=== PATIENT | female | born 1950 | race Caucasian/White ===

== ENCOUNTER → 2016-11-28 | Outpatient (CLI) | payer MEDICARE ==
[2016-11-28 15:36] LABS: Blood Urea Nitrogen 17 mg/dL (7-17); Non-African American GFR(MDRD) >60 (>60 ml/min/1.73 sqM)
== END | disposition home or self-care (01) ==
LOC: LABWHC1 14:56
PROVIDERS: ATTEND Physician Assistant
DX: M51.36 Other intervertebral disc degeneration, lumbar region (principal); M43.17 Spondylolisthesis, lumbosacral region; M54.16 Radiculopathy, lumbar region; M54.5 Low back pain; N28.9 Disorder of kidney and ureter, unspecified
CPT/HCPCS: 36415; 82565; 84520

== ENCOUNTER → 2017-09-29 | Outpatient (CLI) | payer MEDICARE ==
--- NOTE | 2017-09-29 16:21 | US ---
EXAMINATION TYPE: US thyroid st tissue head/neck DATE OF EXAM: 09/29/2017 COMPARISON: NONE CLINICAL HISTORY: 67-year-old female R22.1 THYROID MASS. Enlarged gland, on thyroid meds for 20 years . TECHNIQUE: Multiple sonographic images of the thyroid gland are obtained. FINDINGS: GLAND SIZE: Right Lobe: 6.5 x 2.9 x 3.1 cm Left Lobe: 4.7 x 2.1 x 2.5 cm Isthmus Thickness: 0.4 cm The thyroid gland is markedly heterogeneous, bulky, enlarged. 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 No other discrete nodule is seen. IMPRESSION: 1. Bulky and markedly heterogeneous thyroid gland could reflect goiter or diffuse thyroiditis. If the re is a new palpable mass and enlargement is noted, an infiltrative lesion such as lymphoma would be difficult to exclude. Further clinical correlation would be recommended as to the need for any tissue sampling. 2. If no sampling is performed, a three-month follow-up ultrasound can reassess.
== END | disposition home or self-care (01) ==
LOC: RADUSWWP 15:21
PROVIDERS: ATTEND Family Medicine
DX: E07.89 Other specified disorders of thyroid (principal); R22.1 Localized swelling, mass and lump, neck
CPT/HCPCS: 76536

== ENCOUNTER → 2017-10-01 | Outpatient (CLI) | payer MEDICARE ==
[2017-10-01 11:14] LABS: T4, Free (Free Thyroxine) 1.53 ng/dL (0.78-2.19)
== END | disposition home or self-care (01) ==
LOC: LABWHC1 10:23
PROVIDERS: ATTEND Otolaryngology
DX: E03.9 Hypothyroidism, unspecified (principal)
CPT/HCPCS: 36415; 84439; 84443; 86376

== ENCOUNTER 2021-05-13 11:30 | Emergency (ER) | payer MEDICARE ==
[2021-05-13 11:42] VITALS: RESP 20; TEMP 98.7
[2021-05-13] MEDS ORDERED: SODIUM CHLORIDE 0.9% 500 ML 500 ML IV STA (12:54)
[2021-05-13] MEDS ORDERED: PANTOPRAZOLE 40 MG/10 ML VIAL IVP STA (12:54)
[2021-05-13] MEDS ORDERED: MORPHINE SULFATE 2 MG/ML SYRINGE IVP STA (12:54)
[2021-05-13] MEDS ORDERED: ONDANSETRON 4 MG/2 ML VIAL IVP STA (12:54)
--- NOTE | 2021-05-13 13:02 | ED ---
General Adult HPI - General Chief complaint: GI Bleed Stated complaint: Diarrhea/blood in stool/abd pain Time Seen by Provider: 05/13/21 12:45 Source: patient, RN notes reviewed Mode of arrival: ambulatory Limitations: no limitations - History of Present Illness Initial comments: Patient is a 70-year-old female presenting to the emergency Department with complaints of left lower quadrant abdominal pain as well as bloody diarrhea for the past 2 days. Patient states on Thursday night, early in the morning she woke up with left lower quadrant pain, rated to the bathroom and had a large amount of bloody diarrhea. States is bright red in nature. The pain and diarrhea has progressed over the past 2 days, she's had multiple bowel movements over the pa st 2 days each with bright red blood in it. She denies being on blood thinners. Back in 1995 she had a bowel resection secondary to ischemia. The patient has not had a colonoscopy since then. She admits appendectomy, , hysterectomy and tubal ligation. She denies any fevers or chills, no chest pain or shortness of breath, no nausea or vomiting. He currently rates her left lower quadrant pain about a 7/10. Patient has no further complaints at this time. Her vitals are stable upon arrival. - Related Data Home Medications Medication Instructions Recorded Confirmed Citalopram Hydrobromide [CeleXA] 20 mg PO HS 07/18/14 07/31/14 Ibuprofen [Motrin] 200 - 400 mg PO Q6HR PRN 07/18/14 07/31/14 Levothyroxine Sodium [Synthroid] 100 mcg PO QAM 07/18/14 07/18/14 estradioL [Estrace] 1 mg PO QAM 07/18/14 07/18/14 valACYclovir HCL [Valtrex] 1,000 mg PO DAILY 07/18/14 07/31/14 Previous Rx's Medication Instructions Recorded Hydrocodone/Acetaminophen [[place] 1 - 2 each PO Q8HR PRN #90 tab 07/31/14 5-325] Ciprofloxacin HCl [Cipro] 500 mg PO BID 7 Days #14 tab 05/13/21 metroNIDAZOLE [Flagyl] 500 mg PO TID 7 Days #21 tab 05/13/21 Allergies Allergy/AdvReac Type Severity Reaction Status Date / Time Sulfa (Sulfonamide Allergy Rash/Hives Verified 05/13/21 11:42 Antibiotics) Review of Systems ROS Statement: Those systems with pertinent positive or pertinent negative responses have been documented in the HPI. ROS Other: All systems not noted in ROS Statement are negative. Past Medical History Past Medical History: Osteoarthritis (OA), Thyroid Disorder Additional Past Medical History / Comment(s): CURRENTLY HAVING HERPES OUTBREAK (ORAL), BEING TREATED History of Any Multi-Drug Resistant Organisms: None Reported Past Surgical History: Appendectomy, Breast Surgery, Section, Hysterectomy, Orthopedic Surgery, Tubal Ligation Additional Past Surgical History / Comment(s): EPIDURAL STEROID INJECTIONS BY DR. VELAZQUEZ (4 SINCE AUG 30). REMOVAL OVARIAN CYST. Past Anesthesia/Blood Transfusion Reactions: No Reported Reaction Past Psychological History: Anxiety, Depression Smoking Status: Current every day smoker Past Alcohol Use History: Occasional Past Drug Use History: None Reported - Past Family History Father Family Medical History: Cancer Mother Family Medical History: Cancer General Exam - General Exam Comments Initial Comments: GENERAL: Patient is well-developed and well-nourished. Patient is nontoxic and in no acute distress. HEAD: Atraumatic, normocephalic. EYES: Pupils equal round and reactive to light, extraocular movements intact, sclera anicteric, conjunctiva are normal. Eyelids were unremarkable. ENT: Nares patent, oropharynx clear without exudates. Moist mucous membranes. NECK: Normal range of motion, supple without lymphadenopathy or JVD. LUNGS: Unlabored respirations. Breath sounds clear to auscultation bilaterally and equal. No wheezes rales or rhonchi. HEART: Regular rate and rhythm without murmurs, rubs or gallops. ABDOMEN: Soft, tender to palpation left lower quadrant, suprapubic area, normoactive bowel sounds. No guarding, no rebound. No masses appreciated. : Deferred Rectal exam: Unable to perform rectal exam secondary to patient being in the hallway. MUSCULOSKELETAL: Normal extremities with adequate strength and normal range of motion, no pitting or edema. No clubbing or cyanosis. NEUROLOGICAL: Patient is alert and oriented x 3. Normal speech, normal gait. PSYCH: Normal mood, normal affect. SKIN: Warm, Dry, normal turgor, no rashes or lesions noted. Limitations: no limitations Course Vital Signs 10/18/21 10/18/21 10/18/21 11:39 13:46 15:44 Temperature 98.7 F Pulse Rate 85 83 69 Respiratory 20 20 20 Rate Blood Pressure 109/58 115/58 100/44 O2 Sat by Pulse 99 98 97 Oximetry Medical Decision Making - Medical Decision Making Patient is a 70-year-old female here with complaints of diarrhea as well as left lower quadrant pain over the past 3 days. She also notices bright red blood mixed in her diarrhea. Patient's vital signs are stable. No fevers. Labs are unremarkable including a normal hemoglobin. Urine shows evidence of infection. CT of the abdomen reads correlate for pseudomembranous colitis. Colitis of other etiology not excluded. She was unable to leave a stool sample to test for C. diff today. She did receive some fluids and pain medicine, she's been resting comfortably. She is requesting to go home. I will give her an outpatient lab slip for a stool sample. I will start her on Flagyl and Cipro for colitis. If C. diff returns positive, I will switch her to her oral vancomycin. She is agreeable to this plan of care. Strict return parameters were discussed with her and she verbalized understanding. Case discussed with Dr. loyd. - Lab Data Result diagrams: 05/13/21 12:58 05/13/21 12:58 Lab Results 05/13/21 05/13/21 05/13/21 Range/Units 12:58 12:58 12:58 WBC 9.3 (3.8-10.6) k/uL RBC 4.51 (3.80-5.40) m/uL Hgb 14.4 (11.4-16.0) gm/dL Hct 43.3 (34.0-46.0) % MCV 96.1 (80.0-100.0) fL MCH 31.9 (25.0-35.0) pg MCHC 33.2 (31.0-37.0) g/dL RDW 12.9 (11.5-15.5) % Plt Count 319 (150-450) k/uL MPV 6.9 Neutrophils % 64 % Lymphocytes % 23 % Monocytes % 8 % Eosinophils % 2 % Basophils % 0 % Neutrophils # 6.0 (1.3-7.7) k/uL Lymphocytes # 2.1 (1.0-4.8) k/uL Monocytes # 0.7 (0-1.0) k/uL Eosinophils # 0.2 (0-0.7) k/uL Basophils # 0.0 (0-0.2) k/uL PT 9.6 (9.0-12.0) sec INR 0.9 (<1.2) APTT 22.8 (22.0-30.0) sec Sodium (137-145) mmol/L Potassium (3.5-5.1) mmol/L Chloride (98-107) mmol/L Carbon Dioxide (22-30) mmol/L Anion Gap mmol/L BUN (7-17) mg/dL Creatinine (0.52-1.04) mg/dL Est GFR (CKD-EPI)AfAm (>60 ml/min/1.73 sqM) Est GFR (CKD-EPI)NonAf (>60 ml/min/1.73 sqM) Glucose (74-99) mg/dL Plasma Lactic Acid Rudolph (0.7-2.0) mmol/L Calcium (8.4-10.2) mg/dL Total Bilirubin (0.2-1.3) mg/dL AST (14-36) U/L ALT (4-34) U/L Alkaline Phosphatase (38-126) U/L Total Protein (6.3-8.2) g/dL Albumin (3.5-5.0) g/dL Amylase (30-110) U/L Lipase (23-300) U/L Urine Color Yellow Urine Appearance Clear (Clear) Urine pH 6.0 (5.0-8.0) Ur Specific [place] 1.009 (1.001-1.035) Urine Protein Negative (Negative) Urine Glucose (UA) Negative (Negative) Urine Ketones 1+ H (Negative) Urine Blood Negative (Negative) Urine Nitrite Negative (Negative) Urine Bilirubin Negative (Negative) Urine Urobilinogen <2.0 (<2.0) mg/dL Ur Leukocyte Esterase Negative (Negative) Blood Type Blood Type Recheck Bld Type Recheck Status Antibody Screen Spec Expiration Date 05/13/21 05/13/21 05/13/21 Range/Units 12:58 12:58 13:05 WBC (3.8-10.6) k/uL RBC (3.80-5.40) m/uL Hgb (11.4-16.0) gm/dL Hct (34.0-46.0) % MCV (80.0-100.0) fL MCH (25.0-35.0) pg MCHC (31.0-37.0) g/dL RDW (11.5-15.5) % Plt Count (150-450) k/uL MPV Neutrophils % % Lymphocytes % % Monocytes % % Eosinophils % % Basophils % % Neutrophils # (1.3-7.7) k/uL Lymphocytes # (1.0-4.8) k/uL Monocytes # (0-1.0) k/uL Eosinophils # (0-0.7) k/uL Basophils # (0-0.2) k/uL PT (9.0-12.0) sec INR (<1.2) APTT (22.0-30.0) sec Sodium 134 L (137-145) mmol/L Potassium 3.9 (3.5-5.1) mmol/L Chloride 102 (98-107) mmol/L Carbon Dioxide 23 (22-30) mmol/L Anion Gap 9 mmol/L BUN 13 (7-17) mg/dL Creatinine 0.64 (0.52-1.04) mg/dL Est GFR (CKD-EPI)AfAm >90 (>60 ml/min/1.73 sqM) Est GFR (CKD-EPI)NonAf >90 (>60 ml/min/1.73 sqM) Glucose 97 (74-99) mg/dL Plasma Lactic Acid Rud[place] 0.8 (0.7-2.0) mmol/L Calcium 9.1 (8.4-10.2) mg/dL Total Bilirubin 0.4 (0.2-1.3) mg/dL AST 21 (14-36) U/L ALT 12 (4-34) U/L Alkaline Phosphatase 97 (38-126) U/L Total Protein 7.6 (6.3-8.2) g/dL Albumin 3.9 (3.5-5.0) g/dL Amylase 79 (30-110) U/L Lipase 162 (23-300) U/L Urine Color Urine Appearance (Clear) Urine pH (5.0-8.0) Ur Specific [place] (1.001-1.035) Urine Protein (Negative) Urine Glucose (UA) (Negative) Urine Ketones (Negative) Urine Blood (Negative) Urine Nitrite (Negative) Urine Bilirubin (Negative) Urine Urobilinogen (<2.0) mg/dL Ur Leukocyte Esterase (Negative) Blood Type A Positive Blood Type Recheck A Pos Bld Type Recheck Status No Antibody Screen NEGATIVE Spec Expiration Date 05/16/20212304 Disposition Clinical Impression: Colitis, Abdominal pain Disposition: HOME SELF-CARE Condition: Stable Instructions (If sedation given, give patient instructions): Colitis (ED) Additional Instructions: Please return to the Emergency Department if symptoms worsen or any other concerns. Please complete stool sample as discussed, turn into outpatient lab. Take antibiotics as directed until C. diff test results. Follow-up with your primary care as well as GI. Prescriptions: Ciprofloxacin HCl [Cipro] 500 mg PO BID 7 Days #14 tab metroNIDAZOLE [Flagyl] 500 mg PO TID 7 Days #21 tab Is patient prescribed a controlled substance at d/c from ED?: No Referrals: Reinier Spencer DO [Primary Care Provider] - 1-2 days Elida Schmidt MD [STAFF PHYSICIAN] - 1-2 days
[2021-05-13 13:26] LABS: Basophils % (A) 0 %; Eosinophils # (A) 0.2 k/uL (0-0.7); Eosinophils % (A) 2 %; HCT 43.3 % (34.0-46.0); HGB 14.4 gm/dL (11.4-16.0); Lymphocytes # (A) 2.1 k/uL (1.0-4.8); Lymphocytes % (A) 23 %; MCH 31.9 pg (25.0-35.0); MCHC 33.2 g/dL (31.0-37.0); MCV 96.1 fL (80.0-100.0); Mean Platelet Volume 6.9; Monocytes # (A) 0.7 k/uL (0-1.0); Monocytes % (A) 8 %; Neutrophils % (A) 64 %; Platelet Count 319 k/uL (150-450); RBC 4.51 m/uL (3.80-5.40); RDW 12.9 % (11.5-15.5); WBC 9.3 k/uL (3.8-10.6)
[2021-05-13 13:52] LABS: INR 0.9 (<1.2); Partial Thromboplastin Time 22.8 sec (22.0-30.0); Prothrombin Time 9.6 sec (9.0-12.0)
[2021-05-13 13:57] LABS: ALT 12 U/L (4-34); AST 21 U/L (14-36); African American GFR (CKD) >90 (>60 ml/min/1.73 sqM); Albumin 3.9 g/dL (3.5-5.0); Alkaline Phosphatase 97 U/L (38-126); Amylase 79 U/L (30-110); Anion Gap 9 mmol/L; Blood Urea Nitrogen 13 mg/dL (7-17); Calcium 9.1 mg/dL (8.4-10.2); Carbon Dioxide 23 mmol/L (22-30); Chloride 102 mmol/L (98-107); Glucose 97 mg/dL (74-99); Lipase 162 U/L (23-300); Non-African American GFR(CKD) >90 (>60 ml/min/1.73 sqM); Potassium 3.9 mmol/L (3.5-5.1); Sodium 134 mmol/L (137-145); Total Bilirubin 0.4 mg/dL (0.2-1.3); Total Protein 7.6 g/dL (6.3-8.2)
[2021-05-13 14:19] LABS: Appearance,Urine Clear (Clear); Bilirubin,Urine Negative (Negative); Blood,Urine Negative (Negative); Color,Urine Yellow; Glucose,Urine (UA) Negative (Negative); Ketones,Urine 1+ (Negative); Leukocyte Esterase,Urine Negative (Negative); Nitrite,Urine Negative (Negative); Protein,Urine Negative (Negative); Specific Gravity,Urine 1.009 (1.001-1.035); Urobilinogen,Urine <2.0 mg/dL (<2.0)
--- NOTE | 2021-05-13 14:55 | CT ---
EXAMINATION TYPE: CT abdomen pelvis w con DATE OF EXAM: 05/13/2021 COMPARISON: None HISTORY: LLQ pain, bloody diarrhea CT DLP: 878.1 mGycm CONTRAST: CT scan of the abdomen and pelvis is performed without Oral Contrast and with IV Contrast, patient in jected with 100 ml mL of Isovue 300. FINDINGS: LUNG BASES-: No visible nodule. No infiltrate. LIVER/GB: No calcified gallstones. No space occupying hepatic lesion. Biliary tree is of normal ca liber. PANCREAS: No inflammation. No distinct mass. SPLEEN: No splenic enlargement. No lesion seen. ADRENALS: No nodule. No thickening. KIDNEYS/BLADDER: No hydronephrosis. No nephrolithiasis. No distinct renal mass. Urinary bladder g rossly unremarkable. BOWEL: There is diffuse wall thickening noted to involve the colon from the rectosigmoid region throu gh the cecum. Correlate for pseudomembranous colitis. Small bowel is of normal caliber. GENITAL ORGANS: No gross abnormality. LYMPH NODES: No greater than 1cm abdominal or pelvic lymph nodes are appreciated. AORTA: No significant abnormality. OSSEOUS STRUCTURES: Severe degenerative disc disease at multiple levels. Grade 1 anterolisthesis L4 a nd L5. OTHER: Small fat-containing hernia right paramedian supraumbilical region. IMPRESSION: 1. Correlate for pseudomembranous colitis. Colitis of other etiology not excluded.
[2021-05-13 15:47] VITALS: BP 100/44; PULSE 69
== END 2021-05-13 16:58 | disposition home or self-care (01) ==
LOC: EC 11:30
DX: K52.9 Noninfective gastroenteritis and colitis, unspecified (principal); E07.9 Disorder of thyroid, unspecified; F17.200 Nicotine dependence, unspecified, uncomplicated; Z88.2 Allergy status to sulfonamides; Z79.890 Hormone replacement therapy
CPT/HCPCS: 96374; 96375; 96361; 86900; 86901; 80053; 82150; 83605; 83690; 85025; 85610; 85730; 86850; 74177; 99285; J2405; J2270; C9113; Q9967; 36415; 81003

== ENCOUNTER 2021-06-07 10:26 | Day surgery (SDC) | payer MEDICARE ==
[2021-06-06 08:53] VITALS: BMI 27.3
[~2021-06-07 10:26] MED LIST: LACTATED RINGERS 1,000 ML IV SCH
[2021-06-07 11:29] VITALS: TEMP 97.8
[2021-06-07] MEDS ORDERED: LACTATED RINGERS 1,000 ML IV ONE (11:29)
[2021-06-07] MEDS ORDERED: LIDOCAINE 1% INJ 10MG/ML (20 ML MDV) ONE (12:18)
[2021-06-07] MEDS ORDERED: PROPOFOL 10 MG/ML 20 ML VIAL IV ONE (12:18)
[2021-06-07] MEDS ORDERED: SODIUM CHLORIDE 0.9% 500 ML 500 ML IV ONE (12:42)
--- NOTE | 2021-06-07 12:44 | P.PCN ---
Date of Procedure: 06/07/21 Procedure(s) Performed: BRIEF HISTORY: Patient is a 70-year-old pleasant female scheduled for an elective colonoscopy as a part of screening for colorectal neoplasia. PROCEDURE PERFORMED: Colonoscopy with snare polypectomy. PREOPERATIVE DIAGNOSIS: Screening for colon cancer. IV sedation per Anesthesia. PROCEDURE: After informed consent was obtained, the patient, was brought into the endoscopy unit. IV sedation was administered by Anesthesia under continuous monitoring. Digital rectal examination was normal. Initially the Olympus CF-160 flexible video colonoscope was then inserted in the rectum, gradually advanced into the cecum without any difficulty. Careful examination was performed as the scope was gradually being withdrawn. Ileocecal valve and the appendiceal orifice were visualized and appeared normal. Prep was excellent. Mucosa of the cecum, ascending colon, transverse colon, descending colon, appeared normal. In the sigmoid colon there was a 1 cm pegylated polyp removed by snare polypectomy. Moderate sigmoid diverticulosis seen. Rest of the sigmoid colon, and rectum appeared normal. Retroflexion was performed in the rectum and no lesions were seen. The patient tolerated the procedure well. IMPRESSION: 1 cm pedunculated sigmoid colon polyp status post polypectomy Moderate sigmoid diverticulosis RECOMMENDATIONS: Findings of this examination were discussed with the patient as a family.. She was advised to follow with the biopsy results. If the biopsy reveals adenoma she can have a repeat colonoscopy in 5 years.
[2021-06-07 12:49] VITALS: RESP 16
[2021-06-07 13:02] VITALS: BP 109/63; PULSE 67
== END 2021-06-07 13:26 | disposition home or self-care (01) ==
LOC: ORWHC2ENDO 10:26
PROVIDERS: ATTEND Internal Medicine Gastroenterology
DX: Z12.11 Encounter for screening for malignant neoplasm of colon (principal); K57.30 Diverticulosis of large intestine without perforation or abscess without bleeding; K63.5 Polyp of colon; F17.200 Nicotine dependence, unspecified, uncomplicated; E07.9 Disorder of thyroid, unspecified; G43.909 Migraine, unspecified, not intractable, without status migrainosus; Z79.1 Long term (current) use of non-steroidal anti-inflammatories (NSAID); Z79.899 Other long term (current) drug therapy; Z88.2 Allergy status to sulfonamides
CPT/HCPCS: 88305; 45385; J2001; J2704

== ENCOUNTER → 2023-08-27 | Outpatient (CLI) | payer MEDICARE ==
--- NOTE | 2023-08-27 21:06 | MM ---
Reason for Exam: Screening (asymptomatic). Last mammogram was performed 11 year(s) and 2 month(s) ago. Patient History: Menarche at age 12. First Full-Term at age 18. Right ovary removed at age 33. Hysterectomy at age 33. Postmenopausal. Estrogen for 24 years, 7 months. Benign Cyst Aspiration on the left side. Risk Values: Tiarra 5 year model risk: 1.3%. NCI Lifetime model risk: 3.1%. Prior Study Comparison: No prior studies available for comparison. Tissue Density: The breast tissue is heterogeneously dense. This may lower the sensitivity of mammography. Findings: Analyzed By CAD. Single benign oil cyst calcification centrally in the left breast. No significant mass, suspicious microcalcification, or other discrete abnormality is seen. Overall Assessment: Benign, BI-RAD 2 Management: Screening Mammogram of both breasts in 1 year. . Patient should continue monthly self-breast exams. A clinical breast exam by your physician is recommended on an annual basis. This exam should not preclude additional follow-up of suspicious palpable abnormalities. Note on Tiarra scores and lifetime risk: 1. A Tiarra score greater than 3% is considered moderate risk. If this is the case, consider specialist referral to assess eligibility for a risk reducing agent. 2. If overall lifetime risk for the development of breast cancer is 20% or higher, the patient may qualify for future screening with alternating mammogram and breast MRI. Electronically signed and approved by: Reji Ryan M.D. Radiologist
== END | disposition home or self-care (01) ==
LOC: RADMAMWWP 10:14
PROVIDERS: ATTEND Family Medicine
DX: Z12.31 Encounter for screening mammogram for malignant neoplasm of breast (principal); Z78.0 Asymptomatic menopausal state
CPT/HCPCS: 77063; 77067

== ENCOUNTER → 2024-01-22 | Outpatient (CLI) | payer MEDICARE ==
--- NOTE | 2024-01-27 14:21 | CT ---
EXAMINATION TYPE: CT abdomen pelvis w con DATE OF EXAM: 01/22/2024 COMPARISON: 05/13/2021 HISTORY: acute abd pain, ventral hernia. CT DLP: 607.7 mGycm CONTRAST: CT scan of the abdomen and pelvis is performed with Oral Contrast and with IV Contrast, patient injec raz with 100 ml mL of Isovue 300. FINDINGS: LUNG BASES-: No visible nodule. No infiltrate. LIVER/GB: No calcified gallstones. No space occupying hepatic lesion. Biliary tree is of normal ca liber. PANCREAS: No inflammation. No distinct mass. SPLEEN: No splenic enlargement. No lesion seen. ADRENALS: No nodule. No thickening. KIDNEYS/BLADDER: No hydronephrosis. No nephrolithiasis. No distinct renal mass. Urinary bladder g rossly unremarkable. BOWEL: Normal appendix. Normal bowel caliber. No inflammation. GENITAL ORGANS: No gross abnormality. LYMPH NODES: No greater than 1cm abdominal or pelvic lymph nodes are appreciated. AORTA: No significant abnormality. OSSEOUS STRUCTURES: No significant abnormality is seen. OTHER: No significant additional abnormality is seen. IMPRESSION: 1. No hernia is seen
== END | disposition home or self-care (01) ==
LOC: RADCTMAIN 12:54
PROVIDERS: ATTEND Family Medicine
DX: K43.9 Ventral hernia without obstruction or gangrene (principal); K57.30 Diverticulosis of large intestine without perforation or abscess without bleeding; K74.00 Hepatic fibrosis, unspecified; K76.0 Fatty (change of) liver, not elsewhere classified
CPT/HCPCS: 74177; Q9967

== ENCOUNTER → 2024-04-25 | Outpatient (CLI) | payer MEDICARE ==
[2024-04-25 13:20] LABS: HCT 42.6 % (37.2-46.3); HGB 13.8 g/dL (12.0-15.0); MCH 31.9 pg (27.0-32.0); MCHC 32.4 g/dL (32.0-37.0); MCV 98.4 FL (80.0-97.0); Mean Platelet Volume 9.4 FL (9.5-12.2); NRBC Per 100 WBC 0 X 10*3/uL (0.00-0.01); Platelet Count 320 X 10*3/uL (140-440); RBC 4.33 X 10*6/uL (4.10-5.20); RDW 13.2 % (11.5-14.5); WBC 5.94 X 10*3/uL (4.50-10.00)
[2024-04-25 14:36] LABS: ALT 12 U/L (8-44); AST 16 U/L (13-35); Albumin/Globulin Ratio 1.18 Ratio (1.60-3.17); Alkaline Phosphatase 71 U/L (41-126); BUN/Creat Ratio 18.29 Ratio (12.00-20.00); Blood Urea Nitrogen 12.8 mg/dL (9.0-27.0); Calcium 9.5 mg/dL (8.7-10.3); Carbon Dioxide 25.9 mmol/L (21.6-31.8); Chloride 104 mmol/L (96-109); Chol/HDL Ratio 3.08 Ratio; Globulin 3.4 g/dL (1.6-3.3); Glucose 104 mg/dL (70-110); LDL Cholesterol,Calculated 112.4 mg/dL (0.0-131.0); Potassium 4.6 mmol/L (3.5-5.5); Sodium 141 mmol/L (135-145); Total Bilirubin 0.2 mg/dL (0.3-1.2); Total Protein 7.4 g/dL (6.2-8.2)
[2024-04-25 15:31] LABS: NT-Pro-B-Type Natriuretic Pept 154 pg/mL (0-125)
== END | disposition home or self-care (01) ==
LOC: LABWHC1 09:17
PROVIDERS: ATTEND Student in an Organized Health Care Education/Training Program
DX: D72.9 Disorder of white blood cells, unspecified (principal); E11.9 Type 2 diabetes mellitus without complications; I50.9 Heart failure, unspecified; E03.9 Hypothyroidism, unspecified; E78.5 Hyperlipidemia, unspecified; R79.89 Other specified abnormal findings of blood chemistry; Z13.6 Encounter for screening for cardiovascular disorders
CPT/HCPCS: 36415; 80053; 80061; 83036; 83880; 84443; 85027; 86141

== ENCOUNTER 2024-07-08 06:56 | Day surgery (SDC) | payer MEDICARE ==
[2024-07-06 15:25] VITALS: BMI 27.8
--- NOTE | 2024-07-08 06:24 | P.GSHP ---
History of Present Illness H&P Date: 07/08/24 CHIEF COMPLAINT: Ventral hernia. HISTORY OF PRESENT ILLNESS: The patient is a 74-year-old female who presents with swelling along the abdomen for over 1 year with pain and tenderness. Findings were consistent with ventral hernia. She has stopped smoking. Now she presents for further evaluation and management. PAST MEDICAL HISTORY: Please see list and reviewed. PAST SURGICAL HISTORY: Please see list and reviewed. MEDICATIONS: Please see list and reviewed. ALLERGIES: Please see list and reviewed. SOCIAL HISTORY: Please see list and reviewed. FAMILY HISTORY: No reports of Crohn disease or ulcerative colitis. REVIEW OF ORGAN SYSTEMS: CONSTITUTIONAL: No reports of fevers or chills. Has morbid obesity.. GI: Denies any blood in stools or constipation. HEENT: Denies any trouble with vision, hearing or nosebleeds. No difficulty swallowing. LYMPHATIC: The patient denies any lumps and bumps around the neck. ENDOCRINE: Denies any thyroid disorders. Denies any blood sugar glucose intolerance. RESPIRATORY: Denies pneumonia. Denies any troubles with breathing or dyspnea on exertion. CARDIOVASCULAR: Denies recent chest pain, palpitations, or recent heart attacks. GENITOURINARY: Denies any blood in urine or increased urinary frequency. MUSCULOSKELETAL: Has back pain, stiffness, joint arthritis. NEUROLOGIC: Denies any numbness or tingling along the distal extremities. No seizure disorders or headaches. PSYCHIATRIC: Has depression. No suidical ideation. HEMATOLOGIC: Denies any abnormal bleeding or bruising. BREASTS: Denies any breast lumps, pain or nipple discharge. PHYSICAL EXAM: VITAL SIGNS: Stable GENERAL: Well-developed pleasant female in no acute distress. HEENT: No scleral icterus. Extraocular movements grossly intact. Moist buccal mucosa. NECK: Supple without lymphadenopathy. CHEST: Unlabored respirations. Equal bilateral excursions. CARDIOVASCULAR: Regular rate and rhythm. Distal 2+ pulses. ABDOMEN: Soft, nondistended. Tender along the abdomen. Protuberant. MUSCULOSKELETAL: No clubbing, cyanosis, or edema. SKIN: Well perfused. PSYCH: Alert and oriented. No focal or lateralizing signs. LABS: Urine nicotine testing negative REPORT: Cardiac risk assessment obtained. ASSESSMENT: 1. Ventral hernia. PLAN: 1. Recommend proceeding with robotic ventral hernia repair with mesh. 2. Benefits and risks of surgical intervention was discussed including possibility of open technique. 3. DVT prophylaxis. 4. Antibiotic prophylaxis. 5. Weight maintenance described. 6. Nutritional assessment for BMI over 35 addressed 7. Non-narcotic pain managment reviewed. 8. Tobacco cessation and counseling performed. 9. Diabetes with strict glycemic control reviewed. 10. CBC and CMP on day of procedure including EKG due to elevated risks. Past Medical History Past Medical History: Hyperlipidemia, Osteoarthritis (OA), Thyroid Disorder Additional Past Medical History / Comment(s): ventral hernia rt side of abd,migraines, hx "bowel blockage", History of Any Multi-Drug Resistant Organisms: None Reported Past Surgical History: Appendectomy, Back Surgery, Bowel Resection, Section, Hysterectomy, Orthopedic Surgery, Tubal Ligation Additional Past Surgical History / Comment(s): surgery for bowel obstruction-6" removed, REMOVAL OVARIAN CYST. rt ankle-tendon, reji bunionectomy x4, c section x3,reji carpel tunnel Past Anesthesia/Blood Transfusion Reactions: No Reported Reaction Additional Past Anesthesia/Blood Transfusion Reaction / Comment(s): no hx blood transfusion Smoking Status: Former smoker - Past Family History Father Family Medical History: Cancer Mother Family Medical History: Cancer Medications and Allergies Home Medications Medication Instructions Recorded Confirmed Type Citalopram Hydrobromide [CeleXA] 20 mg PO QAM 07/18/14 07/06/24 History Ibuprofen [Motrin] 200 - 400 mg PO Q6HR PRN 07/18/14 07/06/24 History estradioL [Estrace] 1 mg PO QAM 07/18/14 07/06/24 History Atorvastatin [Lipitor] 10 mg PO DAILY 06/06/21 07/06/24 History Levothyroxine Sodium [Synthroid] 137 mcg PO QAM 06/06/21 07/06/24 History Allergies Allergy/AdvReac Type Severity Reaction Status Date / Time Sulfa (Sulfonamide Allergy Rash/Hives Verified 07/06/24 15:10 Antibiotics) ivory soap Allergy Rash/Hives Uncoded 07/06/24 15:10
[~2024-07-08 06:56] MED LIST changes: -LACTATED RINGERS 1,000 ML IV SCH; +LIDOCAINE 1% (10MG/ML) FOR IV START INTRADERMA PRN; +ONDANSETRON 4 MG/2 ML VIAL IVP PRN; +droPERidol 5 MG/2 ML VIAL IVP ONE
[2024-07-08] MEDS: IV FLUID CONTINUATION 1,000 ML IV ONE (07:25)
[2024-07-08 07:42] LABS: Basophils % (A) 1 %; Eosinophils # (A) 0.2 k/uL (0-0.7); Eosinophils % (A) 4 %; HCT 40.1 % (34.0-46.0); HGB 12.9 gm/dL (11.4-16.0); Lymphocytes # (A) 2.4 k/uL (1.0-4.8); Lymphocytes % (A) 42 %; MCH 30.9 pg (25.0-35.0); MCHC 32.2 g/dL (31.0-37.0); MCV 96.1 fL (80.0-100.0); Mean Platelet Volume 6.6; Monocytes # (A) 0.4 k/uL (0-1.0); Monocytes % (A) 7 %; Neutrophils # (A) 2.4 k/uL (1.3-7.7); Neutrophils % (A) 43 %; Platelet Count 332 k/uL (150-450); RBC 4.17 m/uL (3.80-5.40); RDW 12.5 % (11.5-15.5); WBC 5.7 k/uL (3.8-10.6)
[2024-07-08] MEDS: ACETAMINOPHEN TAB 500 MG TAB PO PRN (07:51)
[2024-07-08] MEDS: LACTATED RINGERS 1,000 ML IV SCH (07:51)
[2024-07-08] MEDS: ONDANSETRON 4 MG/2 ML VIAL IVP ONE (07:51)
[2024-07-08] MEDS: MELOXICAM 7.5 MG TAB PO PRN (07:52)
[2024-07-08 07:56] LABS: ALT 14 U/L (4-34); AST 18 U/L (14-36); African American GFR (CKD) >90 (>60 ml/min/1.73 sqM); Albumin 4.1 g/dL (3.5-5.0); Alkaline Phosphatase 81 U/L (38-126); Anion Gap 1 mmol/L; Blood Urea Nitrogen 22 mg/dL (7-17); Calcium 9.3 mg/dL (8.4-10.2); Carbon Dioxide 28 mmol/L (22-30); Chloride 107 mmol/L (98-107); Glucose 108 mg/dL (74-99); Non-African American GFR(CKD) 86 (>60 ml/min/1.73 sqM); Potassium 4.6 mmol/L (3.5-5.1); Sodium 136 mmol/L (137-145); Total Bilirubin 0.5 mg/dL (0.2-1.3); Total Protein 7.5 g/dL (6.3-8.2)
[2024-07-08] MEDS: DEXAMETHASONE SOD PHOSPHATE 4 MG/ML 1 ML VIAL IVP STA (07:57)
[2024-07-08] MEDS: fentaNYL (PF) 50 MCG/ML 2 ML AMP IVP ONE (08:21)
[2024-07-08] MEDS: MIDAZOLAM 2 MG/2 ML VIAL IVP ONE (08:21)
[2024-07-08] MEDS: HEPARIN SODIUM,PORCINE 5,000 UNIT/ML 1 ML VIAL SQ PRN (08:46)
[2024-07-08] MEDS ORDERED: fentaNYL (PF) 50 MCG/ML 2 ML AMP ONE (09:18)
[2024-07-08] MEDS ORDERED: SUCCINYLCHOLINE CHLORIDE 200 MG/10 ML VIAL IV ONE (09:18)
[2024-07-08] MEDS ORDERED: PROPOFOL 10 MG/ML 20 ML VIAL IV ONE (09:18)
[2024-07-08] MEDS ORDERED: PHENYLEPHRINE 10 MG/ML VIAL ONE (09:18)
[2024-07-08] MEDS ORDERED: DEXAMETHASONE SOD PHOSPHATE 4 MG/ML 1 ML VIAL ONE (09:18)
[2024-07-08] MEDS ORDERED: ROPIVACAINE 5 MG/ML 30 ML VIAL ONE (09:18)
[2024-07-08] MEDS ORDERED: LIDOCAINE 1% INJ 10MG/ML (20 ML MDV) ONE (09:18)
[2024-07-08] MEDS ORDERED: GLYCOPYRROLATE 0.2 MG/ML 2 ML VIAL ONE (09:18)
[2024-07-08] MEDS ORDERED: ROCURONIUM 10 MG/ML (5 ML VIAL) IV ONE (09:18)
[2024-07-08] MEDS ORDERED: NEOSTIGMINE 1 MG/ML 10 ML VIAL ONE (09:18)
[2024-07-08] MEDS: LIDOCAINE 1%-EPI 1:100,000 20 ML VIAL SQ ONE (09:55)
[2024-07-08] MEDS: LACTATED RINGERS 1,000 ML IV ONE (11:25)
[2024-07-08 11:46] VITALS: TEMP 98
[2024-07-08] MEDS: HYDROmorphone 0.5 MG/0.5 ML SYRINGE IVP PRN (12:12)
[2024-07-08 13:55] VITALS: BP 105/50; RESP 18
[2024-07-08 14:07] VITALS: PULSE 66
--- NOTE | 2024-07-08 21:30 | P.OP ---
Date of Procedure: 07/08/24 Description of Procedure: SURGEON: NATASHA LEW MD PREOPERATIVE DIAGNOSES: 1. Incisional incarcerated hernia, initial 2. History of multiple abdominal surgeries 3. Tobacco abuse disorder in remission 4. Hypertensive heart disease 5. Hypothyroidism 6. History of multiple bowel obstructions 7. Generalized anxiety disorder 8. Depressive disorder 9. Hyperlipidemia POSTOPERATIVE DIAGNOSES: 1. Incisional incarcerated hernia, initial, 7 x 5 mm 2. History of multiple abdominal surgeries 3. Tobacco abuse disorder in remission 4. Hypertensive heart disease 5. Hypothyroidism 6. History of multiple bowel obstructions 7. Generalized anxiety disorder 8. Depressive disorder 9. Hyperlipidemia 10. Severe intra-abdominal adhesions OPERATION: 1. Robotic-assisted da Yuval Xi laparoscopic extensive lysis of adhesions over 80% of case, over 1-1/2 hours 2. Robotic-assisted da Yuval Xi laparoscopic repair of recurrent incarcerated epigastric incisional hernia with mesh, ventralight ST mesh 10 x 15 cm Anesthesia: GETA, regional, local Estimated Blood Loss (ml): 10 Pathology: None COMPLICATIONS: None. Operative Findings: 1. Upper midline epigastric incisional hernia defect 7 x 5 cm 2. Severe intra-abdominal adhesions omentum to the abdominal wall incorporating midline including pelvis requiring extensive lysis of adhesions over 80% the case otherwise 1.5 hours 3. Fascia repaired using #1 V-lock suture with fascial indication x 2 4. Upper midline incarcerated incisional hernia incorporating omentum including preperitoneal fat, reduced INDICATIONS: The patient is a 74-year-old female who presents with a personal history of multiple abdominal abdominal surgeries including for bowel obstruction. Patient reports painful swelling along the right of the midline of the upper abdomen from multiple incisions.. Surgical intervention with laparoscopic versus robotic and open techniques were reviewed. Placement of mesh was also reviewed. Benefits and risks were thoroughly described. Informed consent was obtained. DESCRIPTION OF PROCEDURE: The patient was brought into the operating room and laid in supine position. After general induction, the abdomen had been prepped and draped in standard sterile fashion. Ioban draping was also placed. Prior to incision, a timeout protocol was confirmed with surgical team regarding the patient's name including procedures to be performed. The robot was primed prior to the procedure. A field block using local anesthetic was placed along hernia site including the proposed port sites. Initial incision was made with an #11 blade along the left upper quadrant. A 0 degree 5 mm laparoscopic trocar entry was performed and insufflated. Three 8 mm ports were placed along the left lateral abdominal wall under direct localization after exchanging the 5-mm for an 12 mm port. Placements of the ports were 15 cm from the target anatomy and 10 cm apart. The [employer] Xi robot was previously primed, prepped and draped then docked from the right side of the patient onto the left side of the patient. I then sat at the robot [employer] console where working arms of the robot including Bovie cautery connected to robotic scissors, vessel sealer, needle fork truck driver, and graspers placed by the plastic surgery assistant. Severe midline including pelvic adhesions incorporating omentum to the abdominal wall including of the epigastrium was found. Extensive lysis of adhesions using vessel sealer, blunt dissection for over 80% of case otherwise 1.5 hours was performed to clean the fascia as well as identification of the hernia reduction of the incarcerated omentum and preperitoneal fat of the incisional hernia. Incarcerated omental contents were found along the upper midline defect incorporating the falciform. The defects were reduced with preperitoneal fat including the falciform ligament at the upper midline defect. [place] cheese distinct fascial defects of at least 7 hernias were found upper midline defect 7 x 5 cm. The incarcerated contents were reduced as the peritoneal fat was cleaned from the abdominal wall. Next, hemostasis was checked with cautery. The hernia defects were oversewn using #1 nonabsorbable V-lock suture along the length of the upper midline. Fascial imbrication x 2 was performed for closure of the hernia primarily.. Next, ventralight ST mesh 10 x 15 cm was placed with the rough side towards the abdominal wall as to cover the epigastric defect. 2-0 VLOC absorbable 12 inch sutures were used to fixate the mesh. A final endoscopic imaging was obtained. Subcutaneous swelling of the right of the midline from prior hernia had resolved. All instruments and pneumoperitoneum were evacuated from the abdominal cavity. The da Yuval Xi robot was undocked from the patient. I re-scrubbed into the case for closure of incisions. The fascia of the 12-mm port was probed and less than 8-mm in size. The incisions were reapproximated using 4-0 Monocryl in an interrupted subcuticular fashion. Liquid glue was applied to the skin after cleansing the skin with normal saline and dilute hydrogen peroxide. An abdominal binder was placed. An umbilical dressing was placed prior. At the end of the procedure, needle, sponge, and instrument count had been verified correct by meteorological technician. The patient was taken to the postanesthesia care unit in stable condition. Plan - Discharge Summary Discharge Rx Participant: No New Discharge Prescriptions: New Cyclobenzaprine [Flexeril] 10 mg PO TID #30 tab Simethicone [Gas-X] 125 mg PO AC-TID PRN #20 capsule PRN Reason: Pain Ibuprofen [Motrin] 600 mg PO Q8HR PRN #30 tab PRN Reason: Pain Acetaminophen Tab [Tylenol Tab] 1,000 mg PO Q6HR PRN #30 tablet PRN Reason: Pain Continue estradioL [Estrace] 1 mg PO QAM Citalopram Hydrobromide [CeleXA] 20 mg PO QAM Levothyroxine Sodium [Synthroid] 137 mcg PO QAM Atorvastatin [Lipitor] 10 mg PO DAILY Discontinued Ibuprofen [Motrin] 200 - 400 mg PO Q6HR PRN PRN Reason: Pain Discharge Medication List Citalopram Hydrobromide [CeleXA] 20 mg PO QAM 07/18/14 [History] estradioL [Estrace] 1 mg PO QAM 07/18/14 [History] Atorvastatin [Lipitor] 10 mg PO DAILY 06/06/21 [History] Levothyroxine Sodium [Synthroid] 137 mcg PO QAM 06/06/21 [History] Acetaminophen Tab [Tylenol Tab] 1,000 mg PO Q6HR PRN #30 tablet 07/08/24 [Rx] Cyclobenzaprine [Flexeril] 10 mg PO TID #30 tab 07/08/24 [Rx] Ibuprofen [Motrin] 600 mg PO Q8HR PRN #30 tab 07/08/24 [Rx] Simethicone [Gas-X] 125 mg PO AC-TID PRN #20 capsule 07/08/24 [Rx] Follow up Appointment(s)/Referral(s): Natasha Lew MD [STAFF PHYSICIAN] - 07/12/24 11:45 am Patient Instructions/Handouts: Laparoscopic Herniorrhaphy (PRE), Abdominal Binder (DC) Activity/Diet/Wound Care/Special Instructions: No lifting for 4 pounds in 4 weeks, 08/08/24 NO LONG DRIVES OR AIRPLANE RIDES OVER 60 MINUTES FOR THE NEXT 2 WEEKS, 07/23/24, DUE TO HIGH RISK OF PULMONARY EMBOLISM/DVTs Using antibacterial soap. May shower. No bathtub soaks for 2 weeks, 07/23/24, Wear abdominal binder daily for comfort except for showering. Use ice along incisions for today to prevent swelling. Use Tylenol, simethicone and ibuprofen or Aleve scheduled for the next 24-48 hours for best pain relief. Discharge Disposition: HOME SELF-CARE
--- NOTE | 2024-07-10 16:09 | P.ANPRN ---
Procedure Note - Anesthesia - Nerve Block Performed Bilateral Transversus Abdominis Single Time Out Performed: Yes Date of Procedure: 07/08/24 Procedure Start Time: : Procedure Stop Time: Location of Patient: PreOp Indication: Acute Post-Operative Pain, Requested by Surgeon Sedation Type: Sedate with meaningful contact maintained Preparation: Sterile Prep Position: Supine Needle Types: Pajunk Needle Gauge: 21 Ultrasound used to visualize needle placement: Yes Ultrasound used to observe medication spread: Yes Blood Aspirated: No Pain Paresthesia on Injection Noted: No Resistance on Injection: Normal Image Stored and Saved: Yes Events: Uneventful and Well Tolerated (Ropivacaine 0.5% 20 cc plus dexamethasone 4 mg given bilaterally)
== END 2024-07-08 14:52 | disposition home or self-care (01) ==
LOC: OR 06:56
PROVIDERS: ATTEND Surgery Plastic and Reconstructive Surgery
DX: K43.0 Incisional hernia with obstruction, without gangrene (principal); K66.0 Peritoneal adhesions (postprocedural) (postinfection); E03.9 Hypothyroidism, unspecified; I11.9 Hypertensive heart disease without heart failure; F41.1 Generalized anxiety disorder; J44.9 Chronic obstructive pulmonary disease, unspecified; F17.201 Nicotine dependence, unspecified, in remission; F32.A Depression, unspecified; E78.5 Hyperlipidemia, unspecified; E11.9 Type 2 diabetes mellitus without complications; Z90.49 Acquired absence of other specified parts of digestive tract; Z90.710 Acquired absence of both cervix and uterus; Z88.1 Allergy status to other antibiotic agents; Z88.2 Allergy status to sulfonamides; Z79.890 Hormone replacement therapy; Z79.02 Long term (current) use of antithrombotics/antiplatelets; Z79.51 Long term (current) use of inhaled steroids; Z79.899 Other long term (current) drug therapy
CPT/HCPCS: 64488; 80053; 85025; 49616; C1781; J2250; J0330; J1644; J1100; J2710; J0690; J2405; J2003; J3010; J2795; J2704; J1171; J2371; J1596

== ENCOUNTER → 2024-09-29 | Outpatient (CLI) | payer MEDICARE ==
--- NOTE | 2024-09-29 15:34 | MM ---
Reason for Exam: Screening (asymptomatic). Last mammogram was performed 1 year(s) and 1 month(s) ago. Patient History: Menarche at age 12. First Full-Term at age 18. Right ovary removed at age 33. Hysterectomy at age 33. Postmenopausal. Currently using Estrogen, for 24 years, 7 months. Benign Cyst Aspiration on the left side. Risk Values: Tiarra 5 year model risk: 1.3%. NCI Lifetime model risk: 3.0%. Prior Study Comparison: 06/12/2011 Bilateral Screening Mammogram, [facility]. 06/30/2012 Bilateral Screening Mammogram, [facility]. 08/27/2023 Bilateral MG 3D screening mammo w/cad, [facility]. Tissue Density: The breasts are heterogeneously dense, which may obscure small masses. Findings: Analyzed By CAD. There is no suspicious group of microcalcifications or new suspicious mass in either breast. Overall Assessment: Benign, BI-RAD 2 Management: Screening Mammogram of both breasts in 1 year. Patient should continue monthly self-breast exams. A clinical breast exam by your physician is recommended on an annual basis. This exam should not preclude additional follow-up of suspicious palpable abnormalities. Note on Tiarra scores and lifetime risk: 1. A Tiarra score greater than 3% is considered moderate risk. If this is the case, consider specialist referral to assess eligibility for a risk reducing agent. 2. If overall lifetime risk for the development of breast cancer is 20% or higher, the patient may qualify for future screening with alternating mammogram and breast MRI. [facility], , 09/29/2024 3:31 PM. Electronically signed and approved by: Reji Ryan M.D. Radiologist
== END | disposition home or self-care (01) ==
LOC: RADMAMWWP 12:22
PROVIDERS: ATTEND Family Medicine
DX: Z12.31 Encounter for screening mammogram for malignant neoplasm of breast (principal); R92.333 Mammographic heterogeneous density, bilateral breasts; Z78.0 Asymptomatic menopausal state
CPT/HCPCS: 77063; 77067